=== PATIENT | male | born 1975 | race Caucasian/White ===

== ENCOUNTER 2019-10-11 11:40 | Emergency (ER) | payer OTHER ==
[~2019-10-11] VITALS: Ht 182.9 cm; Wt 117.9 kg
--- NOTE | ~2019-10-11 | EKG ---
[facility] Kiet Girard [facility] [place] [address] ELECTROCARDIOGRAM REPORT Name: NELSY FAY Room #: [facility] M.R.#: [id number] Admission: Attend Phys: Discharge: Date of : 77 Report #: [id number] THIS REPORT FOR: cc: Angie Adams MD ~ THIS REPORT FOR: //name// [facility] ED Test Date: 2019-10-11 Test Time: 11:44:10 Pat Name: NELSY FAY Department: Room: Gender: M Senior Account Director: [facility] 1975 Requested By: Sherman Garland Order Number: [id number] MD: Measurements Intervals [place] Rate: 77 P: 42 SD: 167 QRS: -6 QRSD: 110 T: -38 QT: 366 QTc: 412 Interpretive Statements Sinus rhythm Anterior infarct, old Nonspecific T abnormalities, inferior leads No previous ECG available for comparison [email or web address] By: [id number] Angie Adams MD /EPI
[~2019-10-11 11:40] MED LIST: AVINZA120 MG PO; B 12; COUMADIN7.5 MG PO; CYMBALTA30 MG PO; DOXYCYCLINE 10100 MG PO; LYRICA150 MG PO; LYRICA300 MG PO; MOBIC15 MG PO; PERCOCET 5-3251 EACH PO; PRINIVIL20 MG PO; PROTONIX PO; SILVADENE20 GM TP; VICOPROFEN 2001 EACH PO
[2019-10-11 12:24] LABS: ABSOLUTE NEUTROPHILS 3.9 thou/uL (1.4-8.2); BASOPHILS 0.4 % (0.0-2.0); EOSINOPHILS 1.8 % (0.0-3.0); HEMOGLOBIN 15.2 gm/dL (14.0-18.0); LYMPHOCYTES 31.3 % (24.0-44.0); MCH 31.1 pg (26.0-34.0); MCHC 33.7 g/dL (28.0-37.0); MCV 92.1 fL (80.0-100.0); MONOCYTES 8.8 % (1.0-8.0); PLATELET COUNT 288 thou/uL (150-400); POLYS 57.7 % (36.0-66.0); RBC 4.89 mil/uL (4.50-6.00); RDW 13.6 % (10.5-14.5); WBC 6.7 thou/uL (4.0-11.0)
[2019-10-11 12:52] LABS: ANION GAP 7 mmol/L (7-16); BUN 15 mg/dL (7-18); CALCIUM 9.4 mg/dL (8.5-10.1); CHLORIDE 101 mmol/L (98-107); CO2 29 mmol/L (21-32); GLUCOSE 123 mg/dL (74-106); POTASSIUM 4.3 mmol/L (3.5-5.1); SODIUM 137 mmol/L (136-145)
[2019-10-11 13:03] LABS: ALBUMIN 4.1 g/dL (3.4-5.0); SGOT 29 U/L (15-37); SGPT 69 U/L (30-65); TOTAL BILIRUBIN 0.3 mg/dL (<0.1-1.0); TOTAL PROTEIN 7.8 g/dL (6.4-8.2); TROPONIN-I <0.06 ng/mL (<0.06)
[2019-10-11 15:41] VITALS: BP 137/74
== END 2019-10-11 15:41 | disposition home or self-care (01) ==
LOC: ER 11:40
PROVIDERS: Emergency Medicine
DX: R07.9 Chest pain, unspecified (principal); Z87.891 Personal history of nicotine dependence; Z88.6 Allergy status to analgesic agent

== ENCOUNTER → 2019-10-15 | Outpatient (CLI) | payer OTHER ==
[~2019-10-15] MED LIST changes: +CLONIDINE HCL0.2 M2 PO; +ISOSORBIDE DINI30 MG PO; +MICARDIS40 MG PO; +NIFEDIPINE ER60 M1 PO
== END ==
LOC: SJCVCIMAG 09:32
DX: I37.1 Nonrheumatic pulmonary valve insufficiency (principal); R06.00 Dyspnea, unspecified; R07.9 Chest pain, unspecified; I10 Essential (primary) hypertension; F17.200 Nicotine dependence, unspecified, uncomplicated

== ENCOUNTER → 2019-10-17 | Outpatient (CLI) | payer OTHER | LOC: SJCVCIMAG 07:48 | DX: I10 Essential (primary) hypertension (principal) ==

== ENCOUNTER → 2019-10-29 | Outpatient (CLI) | payer OTHER ==
[~2019-10-29] VITALS: Ht 182.9 cm; Wt 113.4 kg
[2019-10-29 10:46] VITALS: BP 128/80
[2019-10-29 10:55] LABS: HEMOGLOBIN 14.8 gm/dL (14.0-18.0); MCH 30.8 pg (26.0-34.0); MCHC 33.6 g/dL (28.0-37.0); MCV 91.6 fL (80.0-100.0); RBC 4.81 mil/uL (4.50-6.00); RDW 13.7 % (10.5-14.5)
[2019-10-29 11:06] LABS: CALCIUM 9.1 mg/dL (8.5-10.1); CREATININE 0.9 mg/dL (0.7-1.3); POTASSIUM 4.2 mmol/L (3.5-5.1)
--- NOTE | 2019-10-29 11:20 | EKG ---
[facility] [place] [address] ELECTROCARDIOGRAM REPORT Name: NELSY FAY Room #: [facility].#: [id number] Admission: 10/29/19 Attend Phys: Enrico Padilla Discharge: Date of : 77 Report #: [id number] THIS REPORT FOR: cc: Milton Vargas John E. DO Couchonnal, Luis F. 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: Marly NOGUEIRA : 1975 Requested By: Enrico Padilla Order Number: [id number] MD: Venkata Summers Measurements Intervals [place] Rate: 61 P: -6 [place]: 161 QRS: 14 QRSD: 103 T: -31 QT: 403 QTc: 406 Interpretive Statements Sinus rhythm Nonspecific T abnormalities, inferior leads ST elev, probable normal early repol pattern Compared to ECG 10/11/2019 11:44:10 ST (T wave) deviation now present Myocardial infarct finding no longer present T-wave abnormality still present Electronically Signed On 10-29-2019 11:19:46 IN CLASS SPECIAL EDUCATION TEACHER by Venkata Summers [email or web address] <ELECTRONICALLY SIGNED> By: Venkata Summers MD 10/29/19 1119 31 103 Venkata Summers MD /EPI
--- NOTE | 2019-10-29 14:23 | NUR ---
PT HAS BEEN UP AND AROUND IN ROOM. RIGHT GROIN REMAINS STABLE. WILL DC HOME.
--- NOTE | 2019-10-31 22:32 | CATHLAB ---
[facility] [place] [address] INVASIVE PROCEDURE REPORT Name: SUMEETNELSYChris SEVILLA JR Room #: REG [facility] Thomas#: [id number] Admission: 10/29/19 Attend Phys: Enrico Padilla Discharge: Date of : 77 Report #: [id number] THIS REPORT FOR: cc: Milton Vargas John E. DO Lammoglia, Francisco J. MD ~ APPROVED REPORT Study performed: 10/29/2019 10:32:12 Patient Details Patient Status: Out-Patient Room #: The patient is a 44 year-old male Event Personnel Enrico Padilla [place], Priya Louie, PIZZA MAKER Monitor, Benitez White Jones, Jessica RN Procedures Performed Art Access - R femoral artery* Left Heart Cath w/or w/o Coronaries [id number] [facility] [id number] Initial Mod Sed Same Phys/QHP 5y [id number] Hemostasis with Manual pressure,supervision of conscious sedation Indication Positive stress test, Chest pain Procedure Narrative The Right Groin^ was infiltrated with 1% Lidocaine subcutaneous anesthesia. A PINNACLE 4FR Sheath #[id number] sheath was inserted into the RFA^. Coronary angiography was performed using coronary diagnostic catheters. The right coronary system was accessed and visualized with a JR4 catheter. The left coronary system was accessed and visualized with a JL4 catheter. The left ventricle was accessed and visualized with a JR4 catheter. Left ventricular/Aortic Valve gradient assessed via catheter pullback. Hemostasis was obtained with manual pressure following sheath removal without any complications. The patient tolerated the procedure well and there were no complications associated with the procedure. There was no hematoma. Intraoperative Conscious Sedation Sedation start time: 11:49 Case end Time: 12:19 [facility] [address] [place] [address] INVASIVE PROCEDURE REPORT Name: NELSY FAY [facility] [id number] Admission: 10/29/19 Attend Phys: Enrico Kirk Discharge: Date of : 77 Report #: [id number] Versed 3 mg Fluoro Time: 2.45 minutes Dose: DAP 4376.30 cGycm2 633 mGy Contrast Type and Amount: Omnipaque 45 ml Coronary Angiography The patient's coronary anatomy is right dominant. Diagnostic Cath Left Main moderate to large caliber vessel of normal origin bifurcates left circumflex left anterior descending artery. Free of high-grade disease LAD moderate caliber type II vessel which courses in the anterior interventricular sulcus giving to septal and diagonal branches. In the mean mid portion of the mid LAD the vessel then tapers and has irregularities. The distal third consists of a rapidly tapering vessel to a string-like defecating vessel that is at the apex. Small moderate irregularities present but no isolated high-grade disease Diagonal 1 small-caliber vessel coursing along the anterolateral wall. There is luminal irregularities present at the tapers towards its and along the anterolateral aspect of the left ventricle Circumflex moderate caliber vessel with of normal origin courses in the AV groove. It then trifurcates into the first marginal branch which is without high-grade lesions a second marginal branch and a terminal portion which is a smaller caliber vessel which rapidly tapers along the posterior aspect of the heart. OM1 small-caliber vessel with luminal irregularities noted OM2 small-caliber vessel with luminal irregularities present Right Coronary moderate to large caliber vessel of normal origin courses in the AV groove posteriorly giving rise to right atrial and right ventricular branches. The vessel then continues to the crux of the heart giving rise to posterior descending artery and terminating his posterior wall branch no high-grade lesions are noted R PDA small caliber short vessel without high-grade disease present Left Ventriculography Left Ventriculography was not performed. Hemodynamics The aortic pressure is 130/81 mmHg with a mean of 99 mmHg. The left ventricular pressure is 128/4 mmHg with a mean of mmHg. The left [facility] [address] [place] [address] INVASIVE PROCEDURE REPORT Name: NELSY FAY JR [id number] Admission: 10/29/19 Attend Phys: Enrico Kirk Discharge: Date of : 77 Report #: [id number] ventricular end diastolic pressure is 12 mmHg. Conclusion 1. Coronary disease moderate assisting of a rapidly tapering mid to distal left anterior descending artery 2. Abnormal hemodynamics with elevated liver ventricular end-diastolic pressures Recommendations Cardiac Risk Reduction Program Medical Therapy <ELECTRONICALLY SIGNED> By: Enrico Padilla MD 10/31/192229 29 29 Enrico Padilla MD /INF
== END | disposition home or self-care (01) ==
LOC: CATH 09:28
PROVIDERS: Internal Medicine
DX: R07.9 Chest pain, unspecified (principal); I25.10 Atherosclerotic heart disease of native coronary artery without angina pectoris; I11.0 Hypertensive heart disease with heart failure; I50.30 Unspecified diastolic (congestive) heart failure; K21.9 Gastro-esophageal reflux disease without esophagitis; Z87.891 Personal history of nicotine dependence; Z88.8 Allergy status to other drugs, medicaments and biological substances; Z79.899 Other long term (current) drug therapy